=== PATIENT | male | born 1940 | race Caucasian/White ===

== ENCOUNTER → 2022-05-31 09:40 | Outpatient (REF) | payer OTHER, SELFPAY | LOC: RADI 09:40 | PROVIDERS: ATTENDING PHYSICIAN Surgery; FAMILY PHYSICIAN Internal Medicine | DX: T81.31XA Disruption of external operation (surgical) wound, not elsewhere classified, initial encounter (principal); Y83.8 Other surgical procedures as the cause of abnormal reaction of the patient, or of later complication, without mention of misadventure at the time of the procedure; K43.9 Ventral hernia without obstruction or gangrene | CPT/HCPCS: 36573; 36598; C1751 ==

== ENCOUNTER → 2023-05-25 09:16 | Outpatient (REF) | payer OTHER, SELFPAY | LOC: WOUND 09:16 | PROVIDERS: ATTENDING PHYSICIAN Surgery; REFERRING PHYSICIAN Internal Medicine | DX: T83.718A Erosion of other implanted mesh to organ or tissue, initial encounter (principal); T81.31XA Disruption of external operation (surgical) wound, not elsewhere classified, initial encounter; S31.602 Unspecified open wound of abdominal wall, epigastric region with penetration into peritoneal cavity; K43.9 Ventral hernia without obstruction or gangrene; L03.311 Cellulitis of abdominal wall; X58.XXXA Exposure to other specified factors, initial encounter | CPT/HCPCS: 99212 ==

== ENCOUNTER → 2023-08-29 09:51 | Outpatient (REF) | payer OTHER, SELFPAY | LOC: WOUND 09:51 | PROVIDERS: ATTENDING PHYSICIAN Surgery; FAMILY PHYSICIAN Internal Medicine | DX: T81.31XA Disruption of external operation (surgical) wound, not elsewhere classified, initial encounter (principal); Y83.8 Other surgical procedures as the cause of abnormal reaction of the patient, or of later complication, without mention of misadventure at the time of the procedure; T83.718A Erosion of other implanted mesh to organ or tissue, initial encounter; K43.9 Ventral hernia without obstruction or gangrene; L03.311 Cellulitis of abdominal wall | CPT/HCPCS: 99212 ==

== ENCOUNTER → 2023-10-03 09:00 | Outpatient (REF) | payer OTHER, SELFPAY | LOC: WOUND 09:00 | PROVIDERS: ATTENDING PHYSICIAN Surgery; FAMILY PHYSICIAN Internal Medicine | DX: T81.31XA Disruption of external operation (surgical) wound, not elsewhere classified, initial encounter (principal); T83.718A Erosion of other implanted mesh to organ or tissue, initial encounter; S31.602 Unspecified open wound of abdominal wall, epigastric region with penetration into peritoneal cavity; K43.9 Ventral hernia without obstruction or gangrene; L03.311 Cellulitis of abdominal wall; Y83.8 Other surgical procedures as the cause of abnormal reaction of the patient, or of later complication, without mention of misadventure at the time of the procedure | CPT/HCPCS: 99212 ==

== ENCOUNTER → 2023-12-05 08:41 | Outpatient (REF) | payer OTHER, SELFPAY | LOC: WOUND 08:41 | PROVIDERS: ATTENDING PHYSICIAN Surgery; FAMILY PHYSICIAN Internal Medicine | DX: T81.31XA Disruption of external operation (surgical) wound, not elsewhere classified, initial encounter (principal); Y83.8 Other surgical procedures as the cause of abnormal reaction of the patient, or of later complication, without mention of misadventure at the time of the procedure; T83.718A Erosion of other implanted mesh to organ or tissue, initial encounter; S31.602 Unspecified open wound of abdominal wall, epigastric region with penetration into peritoneal cavity; K43.9 Ventral hernia without obstruction or gangrene; L03.311 Cellulitis of abdominal wall; X58.XXXA Exposure to other specified factors, initial encounter | CPT/HCPCS: 99212 ==

== ENCOUNTER → 2024-01-16 09:00 | Outpatient (REF) | payer OTHER, SELFPAY | LOC: WOUND 09:00 | PROVIDERS: ATTENDING PHYSICIAN Surgery; FAMILY PHYSICIAN Internal Medicine | DX: T81.31XA Disruption of external operation (surgical) wound, not elsewhere classified, initial encounter (principal); T83.718A Erosion of other implanted mesh to organ or tissue, initial encounter; S31.602 Unspecified open wound of abdominal wall, epigastric region with penetration into peritoneal cavity; K43.9 Ventral hernia without obstruction or gangrene; L03.311 Cellulitis of abdominal wall; Y83.8 Other surgical procedures as the cause of abnormal reaction of the patient, or of later complication, without mention of misadventure at the time of the procedure; X58.XXXA Exposure to other specified factors, initial encounter | CPT/HCPCS: 99212 ==

== ENCOUNTER → 2024-03-07 08:43 | Outpatient (REF) | payer OTHER, SELFPAY | LOC: WOUND 08:43 | PROVIDERS: ATTENDING PHYSICIAN Surgery; FAMILY PHYSICIAN Internal Medicine | DX: T81.31XA Disruption of external operation (surgical) wound, not elsewhere classified, initial encounter (principal); T83.718A Erosion of other implanted mesh to organ or tissue, initial encounter; Y83.8 Other surgical procedures as the cause of abnormal reaction of the patient, or of later complication, without mention of misadventure at the time of the procedure; K43.9 Ventral hernia without obstruction or gangrene; L03.311 Cellulitis of abdominal wall | CPT/HCPCS: 99213 ==

== ENCOUNTER 2024-03-10 04:12 | Inpatient (IN) | payer OTHER, SELFPAY ==
[2024-03-10 00:38] VITALS: BP 158/74
--- NOTE | 2024-03-10 01:11 | ED.GENMED ---
History of Present Illness
<Sheila Gibbons MD, Resident - Last Filed: 03/10/24 03:08>
General
Chief Complaint: Skin Problem
Source: patient and family
Exam Limitations: none
Time Seen by Provider: 03/10/24 00:45
Nursing documentation reviewed up to this point in time: agreed with
Travel History
Have you traveled to any high risk areas for coronavirus over the past 14 days?: No
Have you had any contact with someone who has COVID-19?: No
Do you have any symptoms of coronavirus? Fever > 100 degrees, chills, cough, shortness of breath, sore throat, loss of taste or smell, muscle aches, or headache?: No
History of Present Illness
History of Present Illness:
83-year-old male with past medical history significant for essential hypertension, GERD, ventral hernia s/p hernioplasty x 15 years ago, repair of ruptured bowel times 06/19/1993 and 2001, abdominal wound that is nonhealing, melanoma in remission,
presents to the ER for evaluation of a new discharge from his wound. His wound is chronically nonhealing for the past 10 years, he has not thought of follow-up with infectious disease and wound care, surgery at [facility]-last dressing was
changed today. Over the last 1 week patient started to notice some redness surrounding the wound, sought out help from wound care physician who recommended to leave the wound open. Patient started to notice increased discharge over the last 2
days, he had his shot as well as dressing completely soaked in the discharge over the last 2 days but no bleeding, and today he noticed that his discharge is associated with some bleeding from the wound site. He also noticed exposure of sutures in
the bed of his wound, which prompted his ER visit.
He denies having any fevers, chills, nausea, emesis, constipation or diarrhea, blood in his stool, dizziness, syncope.
He is currently on lifelong Bactrim and amoxicillin for infection suppression per ID.
He also has chronic indwelling Schmidt catheter over the last 2 years, it was last changed about 2 weeks ago-he gets it changed every month in urology office.
Patient has a history of hypertension, hyperlipidemia but denies having diabetes or other immunocompromise states.
If applicable-neuro sx onset
Onset of symptoms known: No
Time pt last seen normal is known: No
Past History
<Sheila Gibbons MD, Resident - Last Filed: 03/10/24 03:08>
Past History
ED Past Medical History: HTN, Hypercholesterolemia and Other (BPH)
ED Past Surgical History: Other (Incarcerated hernia with small bowel resection)
Social History
Tobacco: Non-smoker
Alcohol: Occasional
Drug: None
Living: alone
Employment: Employed
Family History
Family History: Other
Review of Systems
<Sheila Gibbons MD, Resident - Last Filed: 03/10/24 03:08>
Review of Systems
Allergies reviewed?: Yes
Other source history: family
Constitutional: Reports no symptoms
EENT: Reports no symptoms
Respiratory: Reports no symptoms
ABD/GI: Reports other (wound dehiscence - old , exposed sutures, redness, purulent and bloody discharge is new.)
: Reports no symptoms
Musculoskeletal: Reports no symptoms
Skin: Reports other (wound dehiscence - old , exposed sutures, redness, purulent and bloody discharge is new.)
Neurological: Reports no symptoms
Endocrine: Reports no symptoms
Hematologic/Lymphatic: Reports no symptoms
Psychiatric: Reports no symptoms
Phy Exam
<Sheila Gibbons MD, Resident - Last Filed: 03/10/24 03:08>
General Physical Exam
General Presentation: well appearing and no apparent distress
General Skin: warm
General Habitus: obese
General Mental: alert
General Hydration: appears well hydrated
ENT Exam
ENT Exam: EOMI and TM's normal
Eye Exam
Eye Exam: PERRL and EOMI
Cardiovascular Exam
Cardiovascular Exam: regular rate/rhythm, no edema, no gallop and normal peripheral pulses
Systolic Murmur: 2/6
Heart Sounds: normal
Pulmonary Exam
Pulmonary Exam: lungs clear, no respiratory distress, no rales, no crackles and no rhonchi
Gastrointestinal Exam
Gastrointestinal Exam: normal bowel sounds, non tender, soft, non distended, no cva tenderness and other (Couldn't appreciate organomegaly. Full-thickness wound measuring 3.5 x 2.9 x 0.5 cm with surrounding erythema of the skin, suture material
embedded in the bag, yellowish base-questionable granulation tissue/active infection noted in the bed of the wound. There is some hemorrhagic discharge as well)
External Findings: other (Postsurgical nonhealing wound noted, acquired in 2004.)
Abdominal Scars: vertical midline
Auscultation of Abdomen: normal
Neurological Exam
Neurological Exam: alert, no motor deficits, normal reflexs and speech normal
Musculoskeletal Exam
Musculoskeletal Exam: full ROM and no edema
Skin Exam
Skin Exam: warm/dry and other
Psychiatric Exam
Psychiatric Exam: normal mood/affect
Course
<Sheila Gibbons MD, Resident - Last Filed: 03/10/24 03:08>
Orders/Labs/Results
Orders:
Orders
03/10/24 01:04
CT Abd/pelvis W Iv Cont Urgent
Comment:
Reason For Exam: drainage from abdominal wound
03/10/24 01:11
Complete Blood Count/With Diff Urgent
Comprehensive Metabolic Panel Urgent
Blood Culture Q30M
SUSI Source: Blood/Venous
Specimen Description:
Blood Culture Q30M
SUSI Source: Blood/Venous
Specimen Description:
03/10/24 02:08
Lactic Acid Urgent
Abnormal Lab Results
03/10/24
01:11
RBC 4.10 L 10^6/uL
(4.70-6.10)
Hgb 12.3 L g/dL
(13.0-18.0)
Hct 35.6 L %
(39.0-52.0)
Absolute Lymphs (auto) 0.9 L 10^3/uL
(1.2-3.4)
Neutrophils % 76.5 H %
(42.2-75.2)
Lymphocytes % 12.0 L %
(20.5-51.1)
BUN 24 H mg/dl
(9-20)
Glucose 113 H mg/dl
(70-99)
03/10/24 01:11
03/10/24 01:11
Vital Signs
Initial and Last Documented VS:
Initial Vital Signs
Temp Pulse Resp BP Pulse Ox
98.2 F 82 22 158/74 98
03/10/24 00:38 03/10/24 00:38 03/10/24 00:38 03/10/24 00:38 03/10/24 00:38
Last Documented Vital Signs
Temp Pulse Resp BP Pulse Ox
98.2 F 82 22 158/74 98
03/10/24 00:38 03/10/24 00:38 03/10/24 00:38 03/10/24 00:38 03/10/24 00:38
<Elio Ceron, DO - Last Filed: 03/10/24 03:02>
Orders/Labs/Results
Orders:
Orders
03/10/24 01:04
CT Abd/pelvis W Iv Cont Urgent
Comment:
Reason For Exam: drainage from abdominal wound
03/10/24 01:11
Complete Blood Count/With Diff Urgent
Comprehensive Metabolic Panel Urgent
Blood Culture Q30M
SUSI Source: Blood/Venous
Specimen Description:
Blood Culture Q30M
SUSI Source: Blood/Venous
Specimen Description:
03/10/24 02:08
Lactic Acid Urgent
Abnormal Lab Results
03/10/24
01:11
RBC 4.10 L 10^6/uL
(4.70-6.10)
Hgb 12.3 L g/dL
(13.0-18.0)
Hct 35.6 L %
(39.0-52.0)
Absolute Lymphs (auto) 0.9 L 10^3/uL
(1.2-3.4)
Neutrophils % 76.5 H %
(42.2-75.2)
Lymphocytes % 12.0 L %
(20.5-51.1)
BUN 24 H mg/dl
(9-20)
Glucose 113 H mg/dl
(70-99)
03/10/24 01:11
03/10/24 01:11
Vital Signs
Initial and Last Documented VS:
Initial Vital Signs
Temp Pulse Resp BP Pulse Ox
98.2 F 82 22 158/74 98
03/10/24 00:38 03/10/24 00:38 03/10/24 00:38 03/10/24 00:38 03/10/24 00:38
Last Documented Vital Signs
Temp Pulse Resp BP Pulse Ox
98.2 F 82 22 158/74 98
03/10/24 00:38 03/10/24 00:38 03/10/24 00:38 03/10/24 00:38 03/10/24 00:38
<Sheila Gibbons MD, Resident - Last Filed: 03/10/24 03:08>
MDM/Problems Addressed
Differential Diagnosis Includes:
Enterocutaneous fistula, spontaneous bacterial peritonitis, intra-abdominal abscess, questionable exposed bowels
MDM/Problems Addressed:
CT abdomen and pelvis with IV contrast to assess for infection.
Chronic conditions affecting care: HTN
<Sheila Gibbons MD, Resident - Last Filed: 03/10/24 03:08>
*Critical Care Note
Total Time (30-74mins, 75-104mins- exclusive of procedures): Not Applicable
<Sheila Gibbons MD, Resident - Last Filed: 03/10/24 03:08>
Update Note
Update Note:
Discussed with patient the CT abdomen findings that showed abdominal wall cellulitis.
Entire abdominal wall is not included in the CT scan.
Patient need admission for abdominal wall cellulitis
ED Attending Note
<Sheila Gibbons MD, Resident - Last Filed: 03/10/24 03:08>
-
Portions of this chart may have been created with voice recognition software.� Occasional wrong word or��sound alike� substitutions may have occurred due to the inherent limitations of voice recognition software.
<Elio Ceron, DO - Last Filed: 03/10/24 03:02>
ED Attending Note
Patient seen and examined by attending physician: Yes
I performed a history and physical exam of patient and discussed management with resident, I reviewed resident's note and agree with documented findings and plan of care.: Yes
ED Attending Note:
He with resident examined independently agree with assessment and plan very pleasant 83 male has a chronic abdominal wound dating back into the 1990s when he has surgery here from Dr. Villa/ Ananth has had a chronic dehiscence, followed by wound care
for an infectious disease he is on antibiotics chronically has had acute drainage possibly some confusion increased redness, labs noted CT noted this point I believe it is safe is put him in the hospital consideration for specialty consultation
Discharge Plan
Departure
Patient Disposition: Admit
Date of Disposition: 03/10/24
Time of Disposition: 03:06
Admit to doctor: Marquise Gallo MD
Presentation/result/management discussed w/ accepting MD/DO: Hospitalist
Discharge Problem:
Abdominal wall cellulitis, Abdominal wall defect, acquired
Prescriptions:
No Action
atenolol-chlorthalidone [Tenoretic 50] 50 MG/25 MG tablet
1 tab PO DAILY
tamsulosin 0.4 MG capsule
0.4 mg PO QPM
lisinopril [Zestril] 30 MG tablet
30 mg PO DAILY
omeprazole 20 MG capsule,delayed release(DR/EC)
20 mg PO DAILYPRN PRN (Reason: gerd)
cholecalciferol (vitamin D3) 1,000 UNITS tablet
1,000 units PO DAILY Qty: 0
multivitamin with folic acid [Tab-A-Miki] 1 TABLET tablet
1 tab PO DAILY
acetaminophen [Tylenol Extra Strength] 500 MG tablet
1,000 mg PO DAILY
finasteride 5 MG tablet
5 mg PO HS
simvastatin 20 mg Tablet
20 mg PO HS
clindamycin HCl 300 mg capsule
300 mg PO Q8H 10 Days Qty: 30 0RF
Referrals:
Kendrick Anaya MD [Family Provider] -
Interventions
Interventions:
*Risk Screen - Suicide Last Done: 03/10/24 00:38
*Neglect/Abuse Screening Last Done: 03/10/24 00:38
ED-Skin Assessment Last Done: 03/10/24 01:22
Discharge Date and Time
Print Language: GREEK
[2024-03-10 01:18] VITALS: BMI 32.3
[2024-03-10 01:28] LABS: % Basophils 0.4 % (0-2); % Eosinophils 1.8 % (0-6); % Immature Granulocytes 0.4 % (0-0.5); % Monocytes 8.9 % (1.7-9.3); % Neutrophils 76.5 % (42.2-75.2); Absolute Eosinophils 0.1 10^3/uL (0-0.7); Absolute Lymphocytes 0.9 10^3/uL (1.2-3.4); Absolute Monocytes 0.6 10^3/uL (0.1-0.6); Absolute Neutrophils 5.4 10^3/uL (1.4-6.5); Hematocrit 35.6 % (39.0-52.0); Hemoglobin 12.3 g/dL (13.0-18.0); Mean Corp Hgb Conc. 34.6 g/dL (33.0-37.0); Mean Corpuscular Volume 86.8 fL (80.0-94.0); Mean Platelet Volume 8.8 fL (7.4-10.4); Nucleated Red Blood Cells % 0 % (-); Platelet Count 183 10^3/uL (130-400); Red Cell Dist. Width 13.2 % (11.5-14.5); White Blood Cell Count 7.1 10^3/uL (4.8-10.8)
[2024-03-10 01:37] LABS: ALT (SGPT) 21 U/L (0-50); AST (SGOT) 21 U/L (17-59); Albumin 4.1 g/dl (3.5-5.0); Alkaline Phosphatase 96 U/L (38-126); Blood Urea Nitrogen 24 mg/dl (9-20); Calcium 9.6 mg/dl (8.4-10.2); Carbon Dioxide 23 mmol/L (22-30); Chloride 103 mmol/L (98-107); Estimated Creatinine Clearance 73 ml/min; Glucose 113 mg/dl (70-99); Potassium 4.4 mmol/L (3.5-5.1); Sodium 137 mmol/L (135-145); Total Bilirubin 0.4 mg/dl (0.2-1.3); Total Protein 6.9 g/dl (6.3-8.2); eGFR > 60.00
[2024-03-10 03:16] VITALS: BP 135/66
--- NOTE | 2024-03-10 03:36 | HPS.HSE ---
Family Physician
-
Family Physician: Kenrdick Anaya
Chief Complaint
-
Abdominal wound drainage and redness
History of Present Illness
This is a 83 y.o male with h/o abdominal hernia repair complicated by bowel perforation and recurrent abdominal surgeries left with complicated mesh and open wound with recurrent infection (not closable and not further operable per surg) managed by
wound care and infectious disease (sees Dr. Fernandez), HTN, BPH, chronic urinary retention with indwelling urinary catheter who presents to ED with drainage from the ventral hernia repair wound.
Patient was treated with IV antibiotics about a year ago and is on chronic suppressive amoxicillin and bactrim for several months now with regular f/u at wound care. He followed up on a few days ago and the wound was said to have pink edges with
serosanguinous drainage and no concern for new infection. Since then patient has reported more blood drainage and more purulent drainage from the site. There is surrounding redness. He denies any pain there. He denies any fevers,chills, nausea,
vomiting or diaphoresis. He denies any rash. Has been be consistent with the recommended dressing changes with dakins solution.
In ED today, he was afebrile, hemodynamically stable and in no acute distress. CBC w/o leukocytosis. Normal lactate. BUN/Cr within normal limits. Lytes also normal. LFTs normal. CT of the abdomen and pelvis shows the known complex abdominal
wall hernias without incarceration, bowel obstruction or fluid collections. There is a complex annterior abdominal wound with mesh which appears larger in size but with similar configuration to prior. There is mild thickening of the skin and
subcutanous fat around the site.
Medical History
Past Medical History
Past Medical History: Reports GERD, HTN, Hypercholesterolemia and Other (BPH, urinary retention with chronic schmidt)
Past Surgical History: Reports Appendectomy and Bowel Resection
Additional Past Surgical History:
Incisional Hernia Repair
Social History
Tobacco: Non-smoker
Alcohol: None
Drug: None
Personal:
Living: With Family
Employment: Employed
Family History
Family History: Not pertinent
Allergies / Home Medications
Allergies reflects when Allergies were last updated in [employer].
Home Medications with original date entered in [employer]
Allergy/Medication List:
Allergies
Allergy/AdvReac Type Severity Reaction Status Date / Time
Cephalosporins Allergy Hives Verified 03/10/24 00:40
Home Medications
atenolol 50 mg-chlorthalidone 25 mg tablet (Tenoretic) 1 tab PO DAILY Blood pressure 08/06/20
lisinopril 30 mg tablet (Zestril) 30 mg PO DAILY Blood pressure 08/06/20
multivitamin with folic acid 400 mcg tablet (Tab-A-Miki) 1 tab PO DAILY Supplement 08/06/20
omeprazole 20 mg capsule,delayed release 20 mg PO DAILYPRN PRN gerd 08/06/20
acetaminophen 500 mg tablet (Tylenol Extra Strength) 1,000 mg PO DAILY Pain 10/22/21
finasteride 5 mg tablet 5 mg PO HS Urinary issue 10/22/21
simvastatin 20 mg tablet 20 mg PO HS 04/26/22
Sulfamethoxazole-Trimethoprim 800-160 MG 1 tablet Orally Three times a Week Active
Vitamin D 2000 UNIT as directed Orally Active
Amoxicillin 500 MG 1 tablet Orally Twice a day for 90 days pt is aware of decrease in medication Dec, August, Active
Review of Systems
-
History Source: Patient
Constitutional: Reports No Symptoms
EENT: Reports No Symptoms
Respiratory: Reports No Symptoms
Cardiac: Reports No Symptoms
Abdomen/GI: Reports No Symptoms
: Reports No Symptoms
Musculoskeletal: Reports No Symptoms
Skin: Reports Other (increased drainage from abdominal wound, )
Neurological: Reports No Symptoms
Endocrine: Reports No Symptoms
Hematologic/Lymphatic: Reports No Symptoms
Psych: Reports No Symptoms
Physical Exam
Vital Signs
Vital Signs
Temp Pulse Resp BP Pulse Ox
97.7 F 76 16 135/66 98
03/10/24 03:16 03/10/24 03:16 03/10/24 03:16 03/10/24 03:16 03/10/24 03:16
Physical Exam
General: Well Developed, No Apparent Distress, Comfortable and Conversant
HEENT: NormoCephalic, Anicteric, Moist mucous membranes and Atraumatic
Respiratory: Clear
Cardiac: S1/S2 and Regular Rhythm
Breast: Deferred by me
GI: Non Tender, Distended and Other (right LQ hernia. )
Rectal: Deferred by Provider
Genito-urinary: Schmidt
Musculoskeletal: No Clubbing, No Cyanosis and No Edema
Skin: Warm
Neuro: AO x 3 and No Motor Deficits
Hematologic/Lymphatic: No Lymphadenopathy
Psych: Calm
Laboratory Results
-
03/10/24 01:11
03/10/24 01:11
Laboratory Results
Lactic Acid 1.0 mmol/L (0.7-2.0) 03/10/24 02:08
Total Bilirubin 0.4 mg/dl (0.2-1.3) 03/10/24 01:11
AST 21 U/L (17-59) 03/10/24 01:11
ALT 21 U/L (0-50) 03/10/24 01:11
Alkaline Phosphatase 96 U/L (38-126) 03/10/24 01:11
Data Reviewed
-
CT Scan: Report Reviewed by me
Lab Data: Labs Reviewed by me
Old Records: Reviewed
Impression/Plan
-
IMPRESSION:
83 y.o male here with an abdominal non-healing incisional wall wound with a mesh in place not amenable to surgical repair and on chronic suppressive antibiotics comes in with increased drainage and purulence at the wound site. Examination shows
open wound atop underlying mesh with purulent drainage from wound edges but no collection. There is surrounding erythema without tenderness. No systemic signs of infection. No leukocytosis, lactic acidosis or electrolyte abnormalities. CT a/p
c/w cellulitis surrounding the wound.
PLAN:
1. Wound infection - Worsening of the chronic wound with purulent drainage and cellulitis suggestive new infection despite suppressive abx. Otherwise well appearing and w/o signs of systemic illness.
- admit to med/surg
- prior wound cultures show sensitivities to the suppressive abx, repeat wound culture
-start zosyn 3.375 q8 h pending mrsa screen and ID consult (the prior achromobacter spp and klebsiella where sensitive and covers enterococcus)
- ID consultation
- wound care consultation w/ plastics
2. BPH w/ Chronic catheter - no signs of uti
- continue finasteride
3.Other chronic issues. Continue lisinopri, atenolol, chlorthalidone and simvastatin
DVT PPX - lovenox sq
Code Status - Full Code
[2024-03-10 05:19] VITALS: BMI 32.0
[2024-03-10 06:00] VITALS: BP 152/66
[2024-03-10] MEDS: ZOSYN 50 IV ×3 (06:16→17:24)
--- NOTE | 2024-03-10 07:16 | PTCARENOTE ---
Patient admitted to unit for non-healing abdominal wound. Denies pain at site. Wound was cleansed with saline and dressed. Patient is AAOx3, pleasant, uses cane from home for ambulation OOB. Chronic plaza present. Replaced leg bag with drainage bag.
[2024-03-10] MEDS: Hygroton 25 MG PO (08:00)
[2024-03-10] MEDS: ZESTRIL 30 MG PO (08:00)
[2024-03-10] MEDS: TENORMIN 50 MG PO (08:05)
[2024-03-10 08:20] VITALS: BP 127/68
--- NOTE | 2024-03-10 09:41 | W.PN.HOSP.TC ---
Today's Communication/Plan
-
See PN
Assessment / Plan
Assessment / Plan
83yo M with PMHx of HTN, BPH s/p prostatectomy, HLD, Hx of open R colectomy in 1989, incisional hernia s/p ventral hernia repair in 1997, recurrence and small bowel perforation withing the hernia s/p repair in 1998, recurrance with cecal perforation
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
A/P:
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
Vanco/Zosyn pending Cx
Bcx
ID cosnult
Wound care consult
Previously was deemed to be not a candidate for mesh repair due to multiple previous attepmpts with high risk for postOP complication
#Essential HTN
#GERD
#BPH
#HLD
cont home meds
DVT ppx on lovenox
FUll code
I have spent at least 58min reviewing chart, test results, communication with consultants and direct patient care
Anticipated Discharge: > 48 hours
Subjective/Interval History
-
Date of Service: March 10, 2024
Objective Data
-
Labs:
Laboratory Results
03/10/24
01:11
WBC 7.1
Hgb 12.3 L
Hct 35.6 L
Plt Count 183
Sodium 137
Potassium 4.4
Chloride 103
Carbon Dioxide 23
BUN 24 H
Creatinine 1.0
Glucose 113 H
Calcium 9.6
Total Bilirubin 0.4
AST 21
ALT 21
Alkaline Phosphatase 96
Vital Signs:
Vital Signs
Temp Pulse Resp BP Pulse Ox
97.5 F 73 18 127/68 97
03/10/24 08:20 03/10/24 08:20 03/10/24 08:20 03/10/24 08:20 03/10/24 08:20
I&O
03/09/24 03/10/24 03/11/24
06:59 06:59 06:59
Output Total 500 / 500
Balance -500 / -500
Review of Systems
-
History Source: Patient
All other systems: Reviewed and negative
Abdomen/GI: Reports Other
Skin: Reports Sores (on abdomen)
Physical Exam
-
General: No Apparent Distress
HEENT: Normocephalic
Cardiac: Regular Rhythm
GI: Soft, Nontender and Other (purulent discharge from exposed mesh on anterior abdomen)
Neuro: Awake, Alert, Oriented and AO x 3
Psych: Calm
--- NOTE | 2024-03-10 10:13 | PHA.VAN.IN ---
Assessment
- Assessment
Renal Function: Appears similar to baseline
Renal Function may be Overestimated due to: Obesity. BMI = 31.9
Maximum Temperature: 98.2
Minimum Temperature: 97.5
Concomitant Antimicrobials: Piperacillin-tazobactam
AUC Dosing Plan
- Dosing Variables
Dosing Weight (kg): 109.8
Dosing CrCl (ml/min): 73
Vd coefficient (L/kg): 0.6
- Empiric Dosing
Initial / Loading Dose: Vanc 2000mg--administration pending
Maintenance Regimen: Vanc 1000mg IV L36V--mahsu 03/10 at 1800
Estimated AUC (mcg*h/mL): 482.31
Estimated Peak (mcg*h/mL): 28.03
Estimated Trough (mcg/ml): 13.71
Estimated Half Life (H): 10.7
- Monitoring
No levels ordered at this time: Consider levels after 03/11 1800 dose
Pharmacokinetics Vancomycin I
- -
Patient Age: 83
Patient Sex: Male
Vancomycin Day #: 1
Indication: Skin And Soft Tissue
Requesting Provider: Cedric
Pertinent Antimicrobial Allergies:
Cephalosporins = hives
Height / Weight:
Height 6 ft 1 in
Actual Weight 109.826 kg
IBW in k
Adjusted BW in k.9
Pertinent Past Medical History: Non-healing incisional wall wound; Chronic amoxicillin, Bactrim therapy
- Vital Signs / Lab Results
Temp Pulse Resp BP Pulse Ox
97.5 F 73 18 127/68 97
03/10/24 08:20 03/10/24 08:20 03/10/24 08:20 03/10/24 08:20 03/10/24 08:20
Lab Results - Hematology
03/10/24
01:11
WBC 7.1
Lab Results - Chemistry
03/10/24
01:11
BUN 24 H
Creatinine 1.0
Estimated Creat Clear 73
Albumin 4.1
03/10/24 03/10/24
01:11 02:08
Lactic Acid Cancelled 1.0
[2024-03-10] MEDS: VANCOCIN 540 MG IV (10:18)
--- NOTE | 2024-03-10 10:50 | CON.ID ---
Consultation
-
Date/Time Consultation Requested: 03/10/24 5:19
Date/Time Consultation Performed: 03/10/24 10:51
Requesting Provider: Dr Shelton
Performing Provider: Dr Villatoro
Reason for Consultation: chronic abdominal wound on suppr abx now with cellulitis, purulent drainage
Chief Complaint / Past History
Chief Complaint
abdominal wound and drainage
History of Present Illness
Mr Sanchez is an 83 year old male with history of a chronically infected abdominal mesh following with Dr Paul bolton about 3 weeks ago, at that time with an ongoing wound with minimal drainage. He has been on suppressive amoxicillin 500 mg PO
BID, bactrim 1 DS tab thrice weekly and topical gentamin cream. 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
developed intermittent bloody/purulent drainage from the site and surrounding erythema. No pain. Denies any fevers, chills, sweats, nausea, vomiting or rash. He has continued with wound care with dakins solution. He continues to have bowel
movements through the rectum
Surgical history notable for open R colectomy in 1989 complicated by incisional hernia. Then s/p ventral hernia repair in 1997, unfortunately in 1998 with recurrence and small bowel perforation within the hernia s/p surgical repair. Then again
later in 1998 with recurrence with cecal perforation s/p ileostomy. He was stable until 2003 and then suffered recurrence and ventral incisional hernia repair. At this point in time he has been deemed a nonsurgical candidate and was placed on
suppressive antibiotics as above.
Since arrival here he has been afebrile, bp stable, wbc now 7.1, hgb 12.3, plt 183, L shift is noted on arrival, eos are present, cr 1.0, lactic acid 1.0, t bili 0.4, ast 21, alt 21, alk phos 96, CT a/p with IV contrast: mesh visible at skin
surface, visible skin thickening and inflammatory stranding, blood cultures x2 are in progress, a wound culture was obtained showing many WBC and many GNR, prior wound cultures 12/21/22 with e faecalis and mixed skin shanelle, 04/27/22 wound culture K
oxytoca, Achromobacter and diptheroid - K oxytoca and achromobacter sensitive to bactrim, he was started by the primary team on vancomycin and zosyn - I was not contacted for recommendations and saw the consult order the next morning.
Past History
Additional Past Medical History:
GERD, HTN, Hypercholesterolemia and Other (BPH, urinary retention with chronic plaza)
Additional Past Surgical History:
Appendectomy and Bowel Resection
Allergy History:
Cephalosporins Allergy (Verified 03/10/24 00:40)
Hives
Medications Reviewed: Yes
Social History
Tobacco: Non-Smoker
Alcohol: None
Drug: None
Family History
Family History: Not Pertinent
Review of Systems
Review of Systems
General: Negative Fever or Chills
All systems: All other systems were reviewed and were negative
Vital Signs
Temp Pulse Resp BP Pulse Ox
97.5 F 73 18 127/68 97
03/10/24 08:20 03/10/24 08:20 03/10/24 08:20 03/10/24 08:20 03/10/24 08:20
Physical Exam
Physical Exam
Constitutional: No Acute Distress
Cardiovascular: Regular Rate and S1/S2; Negative Murmur or Rub
Pulmonary: Clear and Symmetric; Negative Wheezes, Rales or Rhonchi
Gastrointestinal: Soft, Non Tender, Non Distended and Normal Bowel Sounds
Skin: Warm and Dry; Negative Rash or Jaundice
Wound: Other (mesh in place, feculent appearing material deep to the mesh and seeping through)
Lab / Diagnostic Study Results
03/10/24 01:11
03/10/24 01:11
Abs Immat Gran (auto) 0.0 10^3/uL (0-0.05) 03/10/24 01:11
Absolute Neuts (auto) 5.4 10^3/uL (1.4-6.5) 03/10/24 01:11
Absolute Lymphs (auto) 0.9 10^3/uL (1.2-3.4) L 03/10/24 01:11
Absolute Monos (auto) 0.6 10^3/uL (0.1-0.6) 03/10/24 01:11
Absolute Basos (auto) 0.0 10^3/uL (0-0.2) 03/10/24 01:11
Immature Gran % 0.4 % (0-0.5) 03/10/24 01:11
Neutrophils % 76.5 % (42.2-75.2) H 03/10/24 01:11
Lymphocytes % 12.0 % (20.5-51.1) L 03/10/24 01:11
Monocytes % 8.9 % (1.7-9.3) 03/10/24 01:11
Eosinophils % 1.8 % (0-6) 03/10/24 01:11
Basophils % 0.4 % (0-2) 03/10/24 01:11
Lactic Acid 1.0 mmol/L (0.7-2.0) 03/10/24 02:08
Microbiology Results
Micro:
03/10/24 06:17 Wound Culture - Pending
Abdomen Gram Stain - Pending
03/10/24 01:11 Blood Culture - Pending
Blood/Venous
03/10/24 01:11 Blood Culture - Pending
Blood/Venous
Assessment / Plan
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
- wound culture gram stain with GNR
- anaerobic culture - done by ga
- blood cultures x2 in progress
- CT a/p with IV contrast only - no oral - inflammatory changes without abscess along the upper margin of the repair - note that intestine closely approximate the location of the mesh on CT ap - read limited by lack of oral contrast
- was on suppression with amoxicillin (presumable for 12/21/22 E faecalis) and thrice weekly bacrtrim (presumably for K oxytoca and Achromobacter)
- currently on vancomycin and zosyn - can continue at this time
- plastic surgery has been consulted
[2024-03-10 15:00] VITALS: BP 121/53
--- NOTE | 2024-03-10 15:54 | CM ---
CM met with pt bedside
Pt resides alone in a [place] with ramp entrance
He is indep with her ADLs and utilizes a SPC while in the community, drives+
Pty has a chronic plaza cath which is changed by Dr Pisano Q4-5 weeks
He attends the wound center Q4 weeks and is under care of Dr Miller/ID who he sees Q6 months
Pt denies financial insecurities
PCP- Kendrick Anaya
Rx- MARIA DE JESUS Mac
Discharge Disposition- anticipate home with continued wound needs
[2024-03-10] MEDS: VANCOCIN 200 IV (17:23)
[2024-03-10] MEDS: LOVENOX 40 MG SC (17:24)
[2024-03-10] MEDS: LIPITOR 10 MG PO (21:18)
[2024-03-10] MEDS: PROSCAR 5 MG PO (21:18)
[2024-03-10 23:00] VITALS: BP 98/53
[2024-03-11] MEDS: ZOSYN 50 IV ×4 (00:35→18:06)
[2024-03-11] MEDS: VANCOCIN 200 IV (06:55)
[2024-03-11 07:31] VITALS: BP 114/66
[2024-03-11 08:02] LABS: % Basophils 0.6 % (0-2); % Eosinophils 2.3 % (0-6); % Immature Granulocytes 0.6 % (0-0.5); % Lymphocytes 11.7 % (20.5-51.1); % Monocytes 10.6 % (1.7-9.3); % Neutrophils 74.2 % (42.2-75.2); Absolute Eosinophils 0.2 10^3/uL (0-0.7); Absolute Lymphocytes 0.8 10^3/uL (1.2-3.4); Absolute Monocytes 0.7 10^3/uL (0.1-0.6); Absolute Neutrophils 4.7 10^3/uL (1.4-6.5); Hematocrit 33.7 % (39.0-52.0); Hemoglobin 11.5 g/dL (13.0-18.0); Mean Corp Hgb Conc. 34.1 g/dL (33.0-37.0); Mean Corpuscular Hgb 30.2 pg (27.0-31.0); Mean Corpuscular Volume 88.5 fL (80.0-94.0); Mean Platelet Volume 9.4 fL (7.4-10.4); Nucleated Red Blood Cells % 0 % (-); Platelet Count 171 10^3/uL (130-400); Red Blood Cell Count 3.81 10^6/uL (4.70-6.10); Red Cell Dist. Width 13.2 % (11.5-14.5); White Blood Cell Count 6.4 10^3/uL (4.8-10.8)
[2024-03-11 08:30] LABS: ALT (SGPT) 18 U/L (0-50); AST (SGOT) 19 U/L (17-59); Albumin 3.6 g/dl (3.5-5.0); Alkaline Phosphatase 84 U/L (38-126); Blood Urea Nitrogen 23 mg/dl (9-20); Carbon Dioxide 24 mmol/L (22-30); Chloride 100 mmol/L (98-107); Estimated Creatinine Clearance 61 ml/min; Glucose 116 mg/dl (70-99); Potassium 4.4 mmol/L (3.5-5.1); Sodium 135 mmol/L (135-145); Total Bilirubin 0.6 mg/dl (0.2-1.3); Total Protein 6.2 g/dl (6.3-8.2); eGFR > 60.00
[2024-03-11] MEDS: Hygroton 25 MG PO (09:11)
[2024-03-11] MEDS: ZESTRIL 30 MG PO (09:11)
[2024-03-11] MEDS: TENORMIN 50 MG PO (09:17)
--- NOTE | 2024-03-11 09:25 | W.PN.ID1 ---
Addendum entered and electronically signed by Loe Miller DO 03/11/24 14:02:
I personally saw and evaluated the patient. I reviewed the resident�s note and agree with findings and plan as documented in the resident�s note.
CT scan personally reviewed, and I am concerned about a possible enterocutaneous fistula, especially given the appearance of current drainage.
Continue current antibiotics (will cover for prior recovered isolate).
Case discussed with primary service.
Await further input from General Surgery.
Original Note:
Date of Service
Date of Service: March 11, 2024
Today's Communication
DC vancomycin
Continue Zosyn
general surgery consult
Assessment / Plan
Impression/Assessment:
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
Recommendations:
-Afebrile
-Initially was on suppression with amoxicillin (presumable for 12/21/22 E faecalis) and thrice weekly bactrim (presumably for K oxytoca and Achromobacter) with outpatient ID
- CT Abd: prior repair of midline anterior abdominal and pelvic wall hernia with surgical mesh extending to the skin surface at the upper margin of the repair and associated skin thickening and inflammatory stranding in the subcutaneous fat along
the upper margin of the repair most consistent with cellulitis of the lower margin of the midline anterior abdominal wound.
- White cell count WNL
- Blood cultures negative
-Wound cultures showing gram negative rods, anaerobic culture pending
-Plastic surgery consulted
-General surgery consult recommended as well due to possibility of enteral fistula
- Discontinue vancomycin
-Continue Zosyn as prior cultures showed sensitivity present
Subjective / Review of Systems
Patient feels well at this time and denies any abdominal pain, fever or chills.
Vital Signs / Physical Exam
Vital Signs
Vital Signs
Temp Pulse Resp BP Pulse Ox
97.8 F 65 18 114/66 97
03/11/24 07:31 03/11/24 07:31 03/11/24 07:31 03/11/24 07:31 03/11/24 07:31
Physical Exam
Constitutional: No Acute Distress
Cardiovascular: Regular Rate
Pulmonary: Clear
Gastrointestinal: Soft, Non Tender and Non Distended
Extremities: Negative Edema
Skin: Warm and Dry
Wound: Other (abdominal wound dressed with no visible bloody/pus discharge)
Neurological: Awake, Alert and Oriented
Objective Data
Lab Data
Lab Results
03/11/24 07:35
03/11/24 07:35
Estimated Creat Clear 61 ml/min 03/11/24 07:35
Lactic Acid 1.0 mmol/L (0.7-2.0) 03/10/24 02:08
Total Bilirubin 0.6 mg/dl (0.2-1.3) 03/11/24 07:35
AST 19 U/L (17-59) 03/11/24 07:35
ALT 18 U/L (0-50) 03/11/24 07:35
Alkaline Phosphatase 84 U/L (38-126) 03/11/24 07:35
Most recent labs reviewed.
Micro Results:
03/10/24 01:11 Blood Culture - Preliminary
Blood/Venous No Growth in 24 hours- Final report to follow
03/10/24 01:11 Blood Culture - Preliminary
Blood/Venous No Growth in 24 hours- Final report to follow
03/10/24 12:52 Anaerobic Culture - Pending
Abdomen
03/10/24 06:17 Wound Culture - Pending
Abdomen Gram Stain - Preliminary
--- NOTE | 2024-03-11 11:11 | PHA.VAN.FU ---
Vancomycin Assessment / Plan
- Assessment
Renal Function: SCR Increasing (0.9->1.0->1.2)
WBC's are: WNL
In the past 24 hrs, patient has been: Afebrile
Concomitant Antimicrobials: Piperacillin/tazobactam
- Dosing Plan
Continue: vancomycin 1000 mg q12h - first dose 03/10 1800
- Monitoring Plan
Peak Level: 03/11 2030 - after 4th total dose
Trough Level: 03/12 0530
- Follow Up
Pharmacy will continue to follow.
Vancomycin Follow UP
- -
Patient Age: 83
Patient Sex: Male
Vancomycin Day #: 2
Indication: Skin And Soft Tissue
Requesting Provider: Cedric
Pertinent Antimicrobial Allergies:
Cephalosporins = hives
Height / Weight:
Height 6 ft 1 in
Actual Weight 109.826 kg
IBW in k
Adjusted BW in k.9
Pertinent Past Medical History: Non-healing incisional wall wound; Chronic amoxicillin, Bactrim therapy
- Vital Signs / Lab Results
Temp Pulse Resp BP Pulse Ox
97.8 F 65 18 114/66 97
03/11/24 07:31 03/11/24 07:31 03/11/24 07:31 03/11/24 07:31 03/11/24 07:31
Lab Results - Hematology
03/10/24 03/11/24
01:11 07:35
WBC 7.1 6.4
Lab Results - Chemistry
03/10/24 03/11/24
01:11 07:35
BUN 24 H 23 H
Creatinine 1.0 1.2
Estimated Creat Clear 73 61
Albumin 4.1 3.6
03/10/24 03/10/24
01:11 02:08
Lactic Acid Cancelled 1.0
Microbiology Results
03/10/24 12:52 Anaerobic Culture - Preliminary
Abdomen Culture pending. Anaerobic cultures are examined after 3
days incubation. Additional information to follow.
03/10/24 06:17 Wound Culture - Preliminary
Abdomen Gram negative bacilli
Gram Stain - Preliminary
03/10/24 01:11 Blood Culture - Preliminary
Blood/Venous No Growth in 24 hours- Final report to follow
03/10/24 01:11 Blood Culture - Preliminary
Blood/Venous No Growth in 24 hours- Final report to follow
--- NOTE | 2024-03-11 12:39 | W.PN.HOSP.TC ---
Today's Communication/Plan
-
cont Abx
Messaged [facility]
Assessment / Plan
Assessment / Plan
83yo M with PMHx of HTN, BPH s/p prostatectomy, HLD, Hx of open R colectomy in 1989, incisional hernia s/p ventral hernia repair in 1997, recurrence and small bowel perforation within the hernia s/p repair in 1998, recurrence with cecal perforation
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
A/P:
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
Vanco/Zosyn pending Cx
Bcx NTD
Wound Cx - GNR
ID consult
Wound care consult - [facility] called
Previously was deemed to be not a candidate for mesh repair due to multiple previous attepmpts with high risk for postOP complication
#Essential HTN
#GERD
#BPH
#HLD
cont home meds
DVT ppx on lovenox
FUll code
I have spent at least 38min reviewing chart, test results, communication with consultants and direct patient care
Anticipated Discharge: > 48 hours
Subjective/Interval History
-
Date of Service: March 11, 2024
Objective Data
-
Labs:
Laboratory Results
03/11/24
07:35
WBC 6.4
Hgb 11.5 L
Hct 33.7 L
Plt Count 171
Sodium 135
Potassium 4.4
Chloride 100
Carbon Dioxide 24
BUN 23 H
Creatinine 1.2
Glucose 116 H
Calcium 9.0
Total Bilirubin 0.6
AST 19
ALT 18
Alkaline Phosphatase 84
Vital Signs:
Vital Signs
Temp Pulse Resp BP Pulse Ox
97.8 F 65 18 114/66 97
03/11/24 07:31 03/11/24 07:31 03/11/24 07:31 03/11/24 07:31 03/11/24 07:31
I&O
03/10/24 03/11/24 03/12/24
06:59 06:59 06:59
Intake Total 1310 / 1310 50 / 50
Output Total 500 / 500 1425 / 1425
Balance -500 / -500 -115 / -115 50 / 50
Review of Systems
-
History Source: Patient
All other systems: Reviewed and negative
Physical Exam
-
General: No Apparent Distress
HEENT: Normocephalic, Atraumatic and Moist Mucous Membranes
Cardiac: Regular Rhythm
GI: Soft and Other (ventral wound on abd wall)
Musculoskeletal: No Clubbing, No Cyanosis and No Edema
Skin: Warm
Neuro: Awake, Alert, Oriented and AO x 3
--- NOTE | 2024-03-11 14:43 | CM ---
Chart reviewed and plan is to home alone when stable.
Plan; Home alone when stable.
--- NOTE | 2024-03-11 14:58 | CON.GS ---
Consultation
-
Date/Time Consultation Requested: 03/11/2024 2 PM
Date/Time Consultation Performed: 03/11/2024 2:30 PM
Requesting Provider: Dr. Steele
Performing Provider: Dr. Fonseca
Reason for Consultation: Exposed mesh and concern for enterocutaneous fistula
Medical History
-
Chief Complaint: Drainage from exposed mesh
History of Present Illness:
This is an 83-year-old male with a history of hypertension, hyperlipidemia, GERD, status post open right segmental cholectomy in 1989 that was complicated by incisional hernia status post ventral hernia repair with Marlex mesh in 1997 complicated by
recurrence and small bowel perforation within the hernia status post repair and ventral hernia repair with Vicryl mesh in 1998 followed by another recurrence and cecal perforation status post ileus cecectomy in 1998 with subsequent recurrence and
ventral incisional hernia repair with PTFE mesh in 2003 which again was complicated by recurrence he follows with Dr. Mejia (GI), Dr. Jean (wound care), Dr. Miller (ID) and has been seen by Dr. Mendoza (general surgery) here for this wound.
He has had intermittent drainage from this incision dating back to 2001. Occasionally this area will heal over but then reopen. Given his obesity, loss of domain and multiple recurrences he was deemed a nonsurgical candidate and placed on
suppressive antibiotics however over the last few weeks he has noted intermittent bloody/purulent drainage from the site as well as surrounding erythema. He denies any pain, fevers chills sweats nausea vomiting or rash. He is continued with wound
care with Dakin's solution. Continues to have fairly normal-appearing bowel movements.
Past Medical History
Past Medical History: Other (GERD, hypertension, hypercholesterolemia, BPH, urinary retention with chronic Schmidt)
Past Surgical History: Other (Open segmental right colectomy followed by ileocecectomy and multiple incisional hernia repairs with mesh most recently PTFE)
Social History
Tobacco: Non-Smoker
Alcohol: None
Drug: None
Living: With Family
Family History
Family History: Reviewed & Not Pertinent
Allergies / Home Medications
Allergy/AdvReac Type Severity Reaction Status Date / Time
Cephalosporins Allergy Hives Verified 03/10/24 12:07
�Medication �Instructions �Recorded �Confirmed �Type
atenolol 50 mg-chlorthalidone 25 1 tab PO DAILY Blood pressure 08/06/20 03/10/24 History
mg tablet (Tenoretic)
cholecalciferol (vitamin D3) 25 1,000 units PO DAILY Supplement ##0 08/06/20 03/10/24 History
mcg (1,000 unit) tablet
lisinopril 30 mg tablet (Zestril) 30 mg PO DAILY Blood pressure 08/06/20 03/10/24 History
multivitamin with folic acid 400 1 tab PO DAILY Supplement 08/06/20 03/10/24 History
mcg tablet (Tab-A-Miki)
omeprazole 20 mg capsule,delayed 20 mg PO DAILYPRN PRN gerd 08/06/20 03/10/24 History
release
acetaminophen 500 mg tablet 1,000 mg PO DAILY Pain 10/22/21 03/10/24 History
(Tylenol Extra Strength)
finasteride 5 mg tablet 5 mg PO HS Urinary issue 10/22/21 03/10/24 History
simvastatin 20 mg tablet 20 mg PO HS High Cholesterol 04/26/22 03/10/24 History
Bactrim PO DAILY Infection 03/10/24 History
amoxicillin PO BID abdominal wound 03/10/24 History
Review of Systems
-
A 10 point review of systems was completed, and was negative except as per HPI.
Physical Exam
Vital Signs
Temp Pulse Resp BP Pulse Ox
97.8 F 65 18 114/66 97
03/11/24 07:31 03/11/24 07:31 03/11/24 07:31 03/11/24 07:31 03/11/24 07:31
03/10/24 03/11/24 03/12/24
06:59 06:59 06:59
Actual Weight 109.826 kg
Body Mass Index (BMI) 32.0
Lab Results
03/11/24 07:35
03/11/24 07:35
WBC 6.4 10^3/uL (4.8-10.8) 03/11/24 07:35
Hgb 11.5 g/dL (13.0-18.0) L 03/11/24 07:35
Hct 33.7 % (39.0-52.0) L 03/11/24 07:35
Plt Count 171 10^3/uL (130-400) 03/11/24 07:35
Abs Immat Gran (auto) 0.0 10^3/uL (0-0.05) 03/11/24 07:35
Neutrophils % 74.2 % (42.2-75.2) 03/11/24 07:35
Physical Exam
General: Well Developed
HEENT: Normocephalic
Respiratory: Non Labored Respirations
GI: Soft, Non Tender, Obese (Large ventral hernia with loss of domain) and Other (He has an open wound that is roughly 6 cm in diameter with surrounding erythema and drainage of enteric contents that are soaking his overlying dressings.)
Data Reviewed
-
CT Scan: Image Personally Visualized and interpreted, Report Reviewed by me, Discussed with Physician and Discussed with Patient
Labs: Labs Reviewed by me, Discussed with Physician and Discussed with Patient
Total Time Spent with Patient (in minutes): 35
Assessment / Plan
-
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
Stat wound care consult to place stoma appliance to collect enteric output and protect the skin to prevent further skin erosion/infection.
Okay to continue diet for now as this appears to be a low output ECF
Appreciate ID recommendations, will defer antibiotics to them
Ultimately I believe he will need surgery to correct this however given his obesity and size of the hernia this would be fairly challenging undertaking and at best would be a bridge repair with a high risk for hernia recurrence. Also given his age
and comorbidities his risk for morbidity and mortality are quite high, I did broach the subject of possible tertiary care center referral to see a hernia specialist but for now we can see how his ECF evolves, thankfully he is clinically stable.
General surgery will continue to follow.
I spent 75 minutes in total for the care of this patient today including direct patient care and counseling, reviewing labs, imaging, coordination of care, as well as documentation.
--- NOTE | 2024-03-11 15:06 | WOUNDNOTE ---
WO RN note: Patient admitted with infected internal mesh
See H&P for complete history.
PMH:
Wound Location and type/assessment: Patient admitted with infected internal abdominal mesh wound. Patient follows at [facility] monthly and has been cleaning with Dakins and applying gentamicin ointment at night. Patient reports that open mesh wound
has been present for approximately 5 years. Patient and chart state patient has been stable until this weekend when the wound started draining. Patient denies pain but noticed around the wound is red due to drainage. No odor noted. Heels and sacrum
intact.
Appetite: Good
Pressure redistribution devices in place: [employer] Accumax. Patient turns and moves in bed easily. Ambulates with cane at home.
Plan: Periwound treated with stoma powder and blotted with no-sting barrier wipe. Neosho ostomy barrier # [id number] and and pouch # [id number] applied. GRISEL De Los Santos given update. Will follow peripherally. Ostomy supplies at bedside.
Will confirm orders with hospitalist and update nurse.
Updated care plan and will follow as needed.
Note to case management of equipment requested for discharge:
Recommend follow up at wound care center upon discharge.
[2024-03-11 15:25] VITALS: BP 147/62
[2024-03-11] MEDS: FLUSH (NSS) 1 FLUSH IV (18:05)
[2024-03-11] MEDS: LOVENOX 40 MG SC (18:06)
[2024-03-11] MEDS: PROSCAR 5 MG PO (21:18)
[2024-03-11] MEDS: LIPITOR 10 MG PO (21:18)
[2024-03-11 23:54] VITALS: BP 117/57
[2024-03-12] MEDS: ZOSYN 50 IV ×2 (00:14→05:16)
[2024-03-12 07:36] VITALS: BP 131/60
[2024-03-12] MEDS: Hygroton 25 MG PO (08:37)
[2024-03-12] MEDS: ZESTRIL 30 MG PO (08:37)
[2024-03-12] MEDS: TENORMIN 50 MG PO (08:41)
--- NOTE | 2024-03-12 09:41 | W.PN.GS2 ---
Today's Communication / Plan
-
-- Transfer to tertiary care facility for management of complex hernia with mesh infection and ECF
-- Sips of clears for comfort
-- TPN if delays in transfer
-- Ostomy appliance for quantifying output and wound management
Assessment / Plan
-
Patient is an 83 yo M p/w chronic mesh infection and concern for development of ECF in the setting of a multiply recurrent ventral incisional hernia with loss of domain
Complex case which should be managed at a tertiary care facility. Without any intervention this is likely to be a festering issue with continued chronic mesh infection and further development of an ECF which will never fully heal. No acute concern
for peritonitis or infection of the skin or surrounding soft tissues. Appears to be well-managed at this time with an ostomy appliance. Discussed options of transfer to a tertiary care facility during this presentation versus pursuing further
management as an outpatient. Pros and cons of both approaches was discussed. No plans or indication for urgent surgical intervention at this time. Recommend transfer to tertiary care facility given issues with oral intake and volume of output
from wound. Outpatient management at this time would require TPN until able to be coordinated. In depth discussion with patient and family who agree. All questions answered.
-- Transfer to tertiary care facility for management of complex hernia with mesh infection and ECF
-- Sips of clears for comfort
-- TPN if delays in transfer
-- Ostomy appliance for quantifying output and wound management
Subjective Data
-
Date of Service: March 12, 2024
No new complaints. Ostomy appliance in place. Denies worsening abdominal pain. No nausea or vomiting. Passing flatus and stool. Outputs from wound have decreased. He notes a correlation with oral intake and output from his wound.
Objective Data
-
Intake and Output
03/11/24 03/12/24 03/13/24
06:59 06:59 06:59
Intake Total 1310 / 1310 1310 / 1310
Output Total 1425 / 1425 1625 / 1625
Balance -115 / -115 -315 / -315
Intake:
Oral fluids 960 / 960 960 / 960
IV fluids (Total) 50 / 50
IV piggybacks 300 / 300 350 / 350
Output:
Urine, Schmidt 142 / 1425 850 / 850
Urine, Voided 775 / 775
Vital Signs
Temp Pulse Resp BP Pulse Ox
98 F 62 19 131/60 97
03/12/24 07:36 03/12/24 07:36 03/12/24 07:36 03/12/24 07:36 03/12/24 07:36
Lab Results
03/11/24 07:35
03/11/24 07:35
Calcium 9.0 mg/dl (8.4-10.2) 03/11/24 07:35
Total Bilirubin 0.6 mg/dl (0.2-1.3) 03/11/24 07:35
AST 19 U/L (17-59) 03/11/24 07:35
ALT 18 U/L (0-50) 03/11/24 07:35
Alkaline Phosphatase 84 U/L (38-126) 03/11/24 07:35
Total Protein 6.2 g/dl (6.3-8.2) L 03/11/24 07:35
Albumin 3.6 g/dl (3.5-5.0) 03/11/24 07:35
Physical Exam
-
Gen: NAD
Abd: morbid obesity, soft, NT, non-peritoneal, ostomy appliance in place, visible mesh underlying, granulation tissue along perimeter, appears to have feculent contamination
--- NOTE | 2024-03-12 09:46 | WOUNDNOTE ---
WOC RN NOTE: Patient and staff reported leaking from distal portion of ostomy appliance last night. Appliance removed and skin treated again with stoma powder and no sting barrier. Eakins paste was placed in a small crease just distal to wound and a
small Eakins Wound Court Magistrate was placed. GRISEL De Los Santos and patient will continue to assess for leaking and notify this RN for assistance.
--- NOTE | 2024-03-12 11:29 | W.PN.HOSP.TC ---
Today's Communication/Plan
-
transfer to [facility]
Merrem
NPO, D% IVF
Assessment / Plan
Assessment / Plan
83yo M with PMHx of HTN, BPH s/p prostatectomy, HLD, Hx of open R colectomy in 1989, incisional hernia s/p ventral hernia repair in 1997, recurrence and small bowel perforation within the hernia s/p repair in 1998, recurrence with cecal perforation
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
found consistent with interstinal output. Recommended for the transfer to tertiary care facility due to ECF. Accepted to [facility] by
A/P:
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
Merrem started on 03/[address] scan with soft tissue swelling
Bcx NTD
Wound Cx - Pseudomonas and Klebsiella Oxytoca
ID consult
Wound care consult - [facility] called - advising transfer
[facility] recommended transfer, NPO and TPN if tansfer delayed
#Essential HTN
#GERD
#BPH
#HLD
cont home meds
DVT ppx on lovenox
FUll code
I have spent at least 58min reviewing chart, test results, communication with consultants and direct patient care
Anticipated Discharge: Within 24 hours
Subjective/Interval History
-
Date of Service: March 12, 2024
Objective Data
-
Vital Signs:
Vital Signs
Temp Pulse Resp BP Pulse Ox
98 F 62 19 131/60 97
03/12/24 07:36 03/12/24 07:36 03/12/24 07:36 03/12/24 07:36 03/12/24 07:36
I&O
03/11/24 03/12/24 03/13/24
06:59 06:59 06:59
Intake Total 1310 / 1310 1310 / 1310
Output Total 1425 / 1425 1625 / 1625
Balance -115 / -115 -315 / -315
Review of Systems
-
History Source: Patient
All other systems: Reviewed and negative
Constitutional: Reports No Symptoms
Physical Exam
-
General: No Apparent Distress
HEENT: Normocephalic
Cardiac: Regular Rhythm
GI: Soft, Nontender and Ostomy
Genito-urinary: No Costovertebral Tender
Musculoskeletal: No Clubbing, No Cyanosis and No Edema
Skin: Warm
Neuro: Awake, Alert, Oriented and AO x 3
Psych: Calm
--- NOTE | 2024-03-12 11:34 | W.DCSUMMARY ---
Addendum entered and electronically signed by Hussain Steele MD 03/12/24 15:00:
#Hx of mesenteric fat infarct
No follow up advised
#Adrenal adenoma
outpatient w/u for hormonal production
#BPH with chronic plaza
Plaza to be replaced q5w as per patient - next scheduled for Mar 27
Original Note:
Discharge Summary
Discharge Data
Date of Admission: 03/10/24
Date of Discharge: 03/12/24
-
Pending Results: No
Hospital Course
83yo M with PMHx of HTN, BPH s/p prostatectomy, HLD, Hx of open R colectomy in 1989, incisional hernia s/p ventral hernia repair in 1997, recurrence and small bowel perforation within the hernia s/p repair in 1998, recurrence with cecal perforation
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
found consistent with interstinal output. Recommended for the transfer to tertiary care facility due to ECF. Accepted to [facility] by
A/P:
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
Merrem started on 03/12
CT scan with soft tissue swelling
Bcx NTD
Wound Cx - Pseudomonas and Klebsiella Oxytoca
ID consult
Wound care consult - [facility] called - advising transfer
[facility] recommended transfer, NPO and TPN if tansfer delayed
#Essential HTN
#GERD
#BPH
#HLD
cont home meds
DVT ppx on lovenox
FUll code
I have spent at least 58min reviewing chart, test results, communication with consultants and direct patient care
Discharge Plan
-
Patient Disposition: Acute Care Hospital
Discharge Orders:
Discharge Patient (As Directed); Ordered 03/12/24
Ordered By: Hussain Steele
Discharge Date and Time
Print Language: POLISH
[2024-03-12] MEDS: D5/0.9% SODIUM CHLORIDE 1000 IV (11:51)
[2024-03-12] MEDS: FLUSH (NSS) 1 FLUSH IV ×2 (11:52→11:56)
[2024-03-12] MEDS: MERREM 500 MG IV (11:54)
--- NOTE | 2024-03-12 14:05 | PN.CDI ---
CDI
- -
CDI:
Physician Documentation Request
Admit Date: 03/10/24 04:12
Dear Doctor Cedric,
Please review the following and provide your response in the progress notes.
Clinical Indicators:
The diagnosis of mesenteric fat infarct was included in the signed 03/10 Abd/Pel CT
- 03/10 Abd/Pel CT 'There is a stable 3.5 cm rim calcified low density mass in the anterior mesentery consistent with mesenteric fat infarct'
Please indicate in your progress notes if you are in agreement that the above diagnosis is valid for this patient:
____ - Mesenteric fat infarct is a valid diagnosis (Please include it in your progress notes)
____ - Mesenteric fat infarct is not a valid diagnosis for this patient
____ - Mesenteric fat infarct is not yet confirmed but remains a suspected condition
____ - Other
Use of terms such as suspected, likely, concern for, or probable are acceptable for a diagnosis that is being evaluated, monitored or treated as if it exists and can be coded in the inpatient setting, when documented at the time of discharge.
Thank you,
Navi Toribio RN
CDI Specialist
Please use your independent medical judgment in providing your response.
--- NOTE | 2024-03-12 14:21 | CM ---
Chart reviewed and plan is for patient to transfer to [facility] today, Dr. Payne.
Plan; Patient to transfer to [facility].
--- NOTE | 2024-03-12 14:31 | W.PN.ID1 ---
Date of Service
Date of Service: March 12, 2024
Today's Communication
Await transfer to [facility]. Discontinue further meropenem for now.
Assessment / Plan
Impression/Assessment:
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
Recommendations:
-Afebrile
-Initially was on suppression with amoxicillin (for E. faecalis) and thrice weekly bactrim (for K oxytoca and Achromobacter).
- White cell count WNL
- Blood cultures negative
Patient for transfer to [facility] for further evaluation and possible surgery.
At present, patient clinically stable. No need to treat recovered organisms from superficial abdominal wound culture.
Discontinue further meropenem.
����������������������������������������������������������
Chief Complaint
-: Other (Infected abdominal mesh; enterocutaneous fistula)
Subjective / Review of Systems
Patient seen and examined. Overall feels well, and denies any specific complaints at present.
Review of Systems: No Fever and No Chills
Vital Signs / Physical Exam
Vital Signs
Vital Signs
Temp Pulse Resp BP Pulse Ox
98 F 62 19 131/60 97
03/12/24 07:36 03/12/24 07:36 03/12/24 07:36 03/12/24 07:36 03/12/24 07:36
Physical Exam
Constitutional: No Acute Distress, Comfortable, Non-toxic and Obese
Eyes: Sclera Anicteric
Cardiovascular: S1/S2; Negative S3/S4
Pulmonary: Clear; Negative Wheezes or Rales
Gastrointestinal: Soft, Non Tender and Other (Ostomy appliance intact over abdominal wound, with liquid fecal-appearing drainage in the bag.)
Extremities: Negative Cyanosis or Erythema
Neurological: Awake and Alert
Psychological: Calm
Objective Data
Lab Data
Lab Results
03/11/24 07:35
03/11/24 07:35
Estimated Creat Clear 61 ml/min 03/11/24 07:35
Lactic Acid 1.0 mmol/L (0.7-2.0) 03/10/24 02:08
Total Bilirubin 0.6 mg/dl (0.2-1.3) 03/11/24 07:35
AST 19 U/L (17-59) 03/11/24 07:35
ALT 18 U/L (0-50) 03/11/24 07:35
Alkaline Phosphatase 84 U/L (38-126) 03/11/24 07:35
Most recent labs reviewed.
Micro Results:
03/10/24 06:17 Wound Culture - Preliminary
Abdomen Pseudomonas aeruginosa
Klebsiella oxytoca
Gram Stain - Preliminary
03/10/24 01:11 Blood Culture - Preliminary
Blood/Venous No Growth in 48 hours- Final report to follow
03/10/24 01:11 Blood Culture - Preliminary
Blood/Venous No Growth in 48 hours- Final report to follow
03/10/24 12:52 Anaerobic Culture - Preliminary
Abdomen Culture pending. Anaerobic cultures are examined after 3
days incubation. Additional information to follow.
Imaging:
03/10/2024 CT abdomen/pelvis with IV contrast: There has been prior repair of midline anterior abdominal and pelvic wall hernia with surgical mesh extending to the skin surface at the upper margin of the repair, and associated skin thickening and
inflammatory stranding in the subcutaneous fat along the upper margin of the repair most consistent with cellulitis of the lower margin of the midline anterior abdominal wound. Please see full dictation for additional detail. Film personally
viewed.
[2024-03-12 14:56] VITALS: BP 137/59
[2024-03-12] MEDS: LOVENOX 40 MG SC (18:29)
== END 2024-03-12 19:26 | disposition short-term general hospital (02) | DRG 394 ==
LOC: 4 WEST ACU 04:12
PROVIDERS: Student in an Organized Health Care Education/Training Program; ADMITTING PHYSICIAN Internal Medicine; ATTENDING PHYSICIAN Internal Medicine; CONSULT PHYSICIAN Student in an Organized Health Care Education/Training Program; CONSULT PHYSICIAN Surgery; EMERGENCY PHYSICIAN Emergency Medicine; FAMILY PHYSICIAN Internal Medicine
DX: K63.2 Fistula of intestine (principal); K65.4 Sclerosing mesenteritis; L03.311 Cellulitis of abdominal wall; T85.79XA Infection and inflammatory reaction due to other internal prosthetic devices, implants and grafts, initial encounter; Y83.2 Surgical operation with anastomosis, bypass or graft as the cause of abnormal reaction of the patient, or of later complication, without mention of misadventure at the time of the procedure; D35.00 Benign neoplasm of unspecified adrenal gland; I10 Essential (primary) hypertension; K21.9 Gastro-esophageal reflux disease without esophagitis; L08.9 Local infection of the skin and subcutaneous tissue, unspecified
CPT/HCPCS: 74177; 80053; 83605; 85025; 87040; 87070; 87075; 87077; 87186; 87205; 99285; Q9967

== ENCOUNTER 2024-06-14 19:28 | Emergency (ER) | payer OTHER, SELFPAY ==
[2024-06-14 19:38] VITALS: BP 132/68
[2024-06-14 20:54] LABS: Urine Albumin 2+ (Neg - Trace); Urine Bilirubin Negative (Negative); Urine Character Slightly Cloudy (Clear); Urine Color Yellow; Urine Glucose Negative (Negative); Urine Ketone Negative (Negative); Urine Leukocyte 3+ (Negative); Urine Nitrite Negative (Negative); Urine Occult Blood 4+ (Negative); Urine Urobilinogen 1+ (Neg - 1+)
[2024-06-14 21:18] LABS: Urine Bacteria Many (Negative); Urine White Cell >100 /HPF (0-5)
--- NOTE | 2024-06-14 23:24 | ED.GENMED ---
Addendum entered and electronically signed by Asuncion Eaton PA-C 06/18/24 09:33:
Urine culture grew out >100,000 Citrobacter. Discharged on doxycycline which shows resistance. I called and spoke with patient's daughter, Vandana. Patient is doing well and urine now appears clear. No reported fevers, chills, abdominal pain. Schmidt
catheter is chronic. Suspect colonization. Per documentation, there was also concern for early cellulitis of abdominal wall. Patient has an appt today with his plastic surgeon. Will defer further abx at this time.
Addendum entered and electronically signed by Sergey Vasques PA-C 06/17/24 08:34:
Urine culture on preliminary status with greater than 100,000 CFU gram-negative bacilli. Patient treated with doxycycline. Pending official culture.
Original Note:
History of Present Illness
General
Chief Complaint: Catheter/Tube Problem
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
Exam Limitations: none
Time Seen by Provider: 06/14/24 23:09
Nursing documentation reviewed up to this point in time: agreed with
History of Present Illness
History of Present Illness:
This is an 83-year-old gentleman who has history of BPH, prostatectomy with chronic indwelling Schmidt catheter. He also has history of chronic abdominal wound with chronically infected abdominal mesh with previous hospitalization here in March
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 Transferred to [facility] where he has continued to follow with multiple specialists with eventual surgical repair 2 weeks ago
with removal of infected mesh, revision of multiple ventral hernias. Discharged to home on Monday, 4 days ago. He has home health nursing care every 2 days�next visit scheduled for tomorrow.
Overall has been feeling well but tonight noticed no output from his Schmidt catheter and daughter attempted to flush the catheter without success.
He has not had a fever nor chills, no abdominal pain, moving his bowels well, appetite has been good. He denies cough no shortness of breath.
He denies dysuria, denies leaking about the catheter, denies abdominal pain but does note that his urine has been more cloudy over the past 2 days and needed flushing by home health nurse yesterday.
His Schmidt catheter was changed on a regular basis/monthly with the last change 2 weeks ago during his abdominal surgery.
Upon arrival to the ED, Schmidt catheter spontaneously began draining and has continued to drain.
Urinalysis obtained by our nursing staff�result is pending.
Past History
Past History
ED Past Medical History: GERD, HTN, Hypercholesterolemia, Other (BPH-chronic indwelling Schmidt catheter) and Other (Abdominal hernias complicated with bowel perforation, recurrent abdominal surgeries with complicated/infected mesh and chronic open
wound 2023)
ED Past Surgical History: Bowel resection, Urological (Prostatectomy) and Other (Incarcerated hernia with small bowel resection-multiple abdominal wall surgeries. May 2024 removal of abdominal wall mesh, multiple abdominal wall hernia repair
and closure of open abdominal wound)
Social History
Tobacco: Non-smoker
Alcohol: Occasional
Drug: None
Personal:
Living: with family (Daughter)
Employment: Retired
Family History
Family History: Other (Noncontributory)
Phy Exam
Physical Exam
Physical Exam:
GENERAL: 83-year-old gentleman appears his stated age, bright and alert, pleasant, appears in no acute distress. Daughter is accompanying.
EYE: anicteric
NECK: Supple, nontender, no meningismus, no significant adenopathy.
ENT: oral mucosa is moist. No rhinorrhea.
CARDIAC: Regular rate and rhythm. no murmur.
LUNGS: Clear breath sounds bilaterally, no acute respiratory distress, no wheezes/rales/rhonchi
ABDOMEN: Rotund, soft, nondistended, without focal tenderness, there is a midline ventral incision from xiphoid to suprapubic. Moderate crust formation lower third of this incision with mild to moderate local erythema along the edges of the
incision without palpable tenderness, no drainage, no palpable heat. There is a BEATRIZ drain exiting left lower quadrant with mild erythema about the BEATRIZ drain site without drainage. No r/g, no cvat. normoactive BS.
Schmidt catheter in place draining pale yellow slightly cloudy urine.
NEUROLOGICAL: Alert and oriented x3, no focal neuro deficits.
SKIN: Warm and dry, normal color, abdominal wall surgical incision as described above.
MUSCULOSKELETAL: No C/C/E. peripheral pulses are full and equal b/l. No palpable tenderness.
PSYCH: Normal and appropriate interaction.
Course
Orders/Labs/Results
Orders:
Orders
06/14/24 20:44
Urinalysis Reflex To Culture Urgent
Date Specimen was Collected: 06/14/24
Time Specimen was Collected: 20:41
Urine Microscopic Reflex Cult Urgent
Urine Culture Urgent
SUSI Source: U
Specimen Description:
Date Specimen was Collected: 06/14/24
Time Specimen was Collected: 20:41
06/14/24 23:23
Doxycycline [Vibramycin] 100 mg PO NOW STA
Abnormal Lab Results
06/14/24
20:44
Ur Occult Blood Reflex 4+ A
(Negative)
Leukocyte Esterase Rfl 3+ A
(Negative)
Urine RBC 7-10 A /HPF
(0-2)
Urine WBC (Reflex) >100 A /HPF
(0-5)
Urine Bacteria (Reflex) Many A
(Negative)
Urine Albumin (Reflex) 2+ A
(Neg - Trace)
Vital Signs
Initial and Last Documented VS:
Initial Vital Signs
Temp Pulse Resp BP Pulse Ox
98.8 F 105 20 132/68 98
06/14/24 19:38 06/14/24 19:38 06/14/24 19:38 06/14/24 19:38 06/14/24 19:38
Last Documented Vital Signs
Temp Pulse Resp BP Pulse Ox
98.8 F 105 20 132/68 98
06/14/24 19:38 06/14/24 19:38 06/14/24 19:38 06/14/24 19:38 06/14/24 19:38
MDM/Problems Addressed
Differential Diagnosis Includes:
Patient presents with lack of drainage from Schmidt catheter concerning for blocked Schmidt catheter which has since resolved upon arrival to the ED.
Schmidt catheter continues to drain quite well, no palpable bladder tenderness and bladder is not palpably distended.
Concern for potential UTI with history of moderately cloudy urine over the past few days but nothing to suggest upper tract infection, no fever, no flank pain.
As catheter continues to drain well, at this point no indication to change the catheter.
Awaiting urinalysis.
Status post chronic abdominal ventral hernia repair 2 weeks ago. Incision is intact but moderate crusting and mild to moderate erythema lower one third of the incision concerning for an early cellulitis. Again reassuring the patient has had no
pain, there is no drainage and he is afebrile.
Consider initiation of antibiotic versus observation. Home health nurse to reevaluate wound tomorrow.
Chronic conditions affecting care: HTN and Previous abdomnial surgery
*Pulse Oximetry
Patient hypoxic: no
*Critical Care Note
Total Time (30-74mins, 75-104mins- exclusive of procedures): Not Applicable
ED Attending Note
-
Portions of this chart may have been created with voice recognition software.� Occasional wrong word or��sound alike� substitutions may have occurred due to the inherent limitations of voice recognition software.
Discharge Plan
Departure
Patient Disposition: Home (Routine Discharge)
Date of Disposition: 06/14/24
Time of Disposition: 23:39
Patient with high blood pressure during this ER visit?: No
Condition: Good
Discharge Problem:
Complication, blocked Schmidt catheter, Catheter-associated urinary tract infection
Instructions: How to Care for Your Schmidt Catheter, Male
Prescriptions:
New
doxycycline monohydrate 100 mg capsule
100 mg PO BID Qty: 14 1RF
No Action
atenolol-chlorthalidone [Tenoretic 50] 50 MG/25 MG tablet
1 tab PO DAILY
lisinopril [Zestril] 30 MG tablet
30 mg PO DAILY
omeprazole 20 MG capsule,delayed release(DR/EC)
20 mg PO DAILYPRN PRN (Reason: gerd)
cholecalciferol (vitamin D3) 1,000 UNITS tablet
1,000 units PO DAILY Qty: 0
multivitamin with folic acid [Tab-A-Miki] 1 TABLET tablet
1 tab PO DAILY
acetaminophen [Tylenol Extra Strength] 500 MG tablet
1,000 mg PO DAILY
finasteride 5 MG tablet
5 mg PO HS
simvastatin 20 mg Tablet
20 mg PO HS
Bactrim
PO DAILY
amoxicillin
PO BID
Referrals:
Kendrick Anaya MD [Family Provider] -
Activity Restrictions/Additional Instructions:
Follow-up with your surgeon as scheduled.
Have your home health nurse keep an eye on on the lower third of that surgical wound.
Urinalysis tonight shows many bacteria, many white blood cells concerning for UTI thus you are being started on 1 week course of doxycycline to be taken twice daily.
Urine culture is pending.
Interventions
Interventions:
*Risk Screen - Suicide Last Done: 06/14/24 20:51
*General Assessment Last Done: 06/14/24 19:38
*Neglect/Abuse Screening Last Done: 06/14/24 20:50
XT-Xxrmkv-Tiqytenjgb Assessment Last Done: 06/14/24 20:42
ED-Male Genitourinary Assessment Last Done: 06/14/24 20:42
Discharge Date and Time
Print Language: KINYARWANDA
[2024-06-14] MEDS: VIBRAMYCIN 100 MG PO (23:44)
== END 2024-06-14 23:53 | disposition home or self-care (01) ==
LOC: EMR 19:28
PROVIDERS: Student in an Organized Health Care Education/Training Program; EMERGENCY PHYSICIAN Emergency Medicine; FAMILY PHYSICIAN Internal Medicine
DX: N39.0 Urinary tract infection, site not specified (principal); T83.518A Infection and inflammatory reaction due to other urinary catheter, initial encounter; T83.091A Other mechanical complication of indwelling urethral catheter, initial encounter; E78.00 Pure hypercholesterolemia, unspecified; I10 Essential (primary) hypertension; K21.9 Gastro-esophageal reflux disease without esophagitis; N40.0 Benign prostatic hyperplasia without lower urinary tract symptoms; Z90.49 Acquired absence of other specified parts of digestive tract; Z90.79 Acquired absence of other genital organ(s); Z98.890 Other specified postprocedural states
CPT/HCPCS: 99283; 81003; 81015; 87077; 87086; 87186

== ENCOUNTER → 2025-03-24 08:54 | Outpatient (REF) | payer OTHER, SELFPAY | LOC: RAD 08:54 | PROVIDERS: ATTENDING PHYSICIAN Internal Medicine | DX: R10.9 Unspecified abdominal pain (principal) | CPT/HCPCS: 74019 ==